=== PATIENT | male | born 2000 | race Two or more races ===

== ENCOUNTER 2023-09-07 12:49 | Emergency (ER) | payer MEDICAID ==
[~2023-09-07] VITALS: Ht 177.8 cm; Wt 72.5 kg
[2023-09-07 14:56] VITALS: BP 115/75; TEMP 97.4
[2023-09-07 14:57] VITALS: PULSE 72; RESP 16; O2SAT 98
== END 2023-09-07 15:10 | disposition home or self-care (01) ==
LOC: ER 12:49
DX: S01.111A Laceration without foreign body of right eyelid and periocular area, initial encounter (principal); X58.XXXA Exposure to other specified factors, initial encounter; Y93.89 Activity, other specified; Y92.89 Other specified places as the place of occurrence of the external cause; Y99.8 Other external cause status
CPT/HCPCS: 12011